=== PATIENT | female | born 1970 | race American Indian/Alaskan Native ===

== ENCOUNTER 2017-05-19 06:11 | Emergency (ER) | payer MEDICARE ==
[2017-05-19 06:16] VITALS: BP 118/52
--- NOTE | 2017-05-19 07:59 | Emergency Department Report ---
HPI - General Chief Complaint: Dental/Oral Time Seen by Provider: 05/19/17 07:27 - HPI HPI: The patient is a 46 year-old female who presents to ED complaining of 7/10 pain in the right side of his mouth x 5 days . Patient states that the pain started 5 days ago and has increased in severity over the last 2-3 days. The pain is exacerbated by eating and opening of the mouth. Patient states that it radiates towards ear. Patient describes a as a throbbing , pressure-like sensation. Patient states otherwise well and has no other complaints. Patient has had no fevers and no chills. No chest pain, no shortness of breath. No abdominal pain. No shortness of breath or recent trauma to the face. ED Past Medical Hx - Past Medical History Previous Medical History?: Yes Hx Diabetes: Yes (Being monitored) Hx Headaches / Migraines: Yes Hx Psychiatric Treatment: Yes (anxiety and depression) Hx Asthma: Yes Additional medical history: anxiety, "chronic stomach pain," cholestrol; - Surgical History Hx Cholecystectomy: Yes Hx Breast Surgery: Yes (right mass removed) Additional Surgical History: sm bowel resection with reanastomosis (2010),. myomectomy. bilat oopherectomy. Bilateral carpal tunnel, Two Right Hip Revisions, Total right hip replacement, Torn right Rotator cuff, Right knee surgery - Social History Smoking Status: Current Every Day Smoker - Medications Home Medications: Home Medications Medication Instructions Recorded Confirmed Last Taken Type FLUoxetine [Prozac] 60 mg PO QDAY 06/14/13 05/19/17 12/03/13 History Topiramate [Topamax] 200 mg PO BID 06/14/13 05/19/17 12/03/13 History Acetaminophen/Codeine [Tylenol 1 tab PO Q6H PRN #8 tab 05/19/17 Unknown Rx /Codeine # 3 tab] Atorvastatin [Lipitor Tab] 80 mg PO QHS 05/19/17 05/19/17 Unknown History Clindamycin [Clindamycin CAP] 300 mg PO BID #14 capsule 05/19/17 Unknown Rx Ergocalciferol [Vitamin D2] 1 cap PO QWEEK 05/19/17 05/19/17 Unknown History Fluticasone/Salmeterol(Nf) [Advair 12 gm IH BID 05/19/17 05/19/17 Unknown History Hfa 115-21 Mcg (Nf)] Ibuprofen [Motrin] 800 mg PO Q8HR PRN #20 tablet 05/19/17 Unknown Rx metFORMIN [Glucophage] 500 mg PO BID 05/19/17 05/19/17 Unknown History ED Review of Systems ROS: Stated complaint: TOOTHACHE Other details as noted in HPI Constitutional: denies: chills, fever Eyes: denies: eye pain, eye discharge, vision change ENT: denies: ear pain, throat pain Respiratory: denies: cough, shortness of breath, wheezing Cardiovascular: denies: chest pain, palpitations Endocrine: no symptoms reported Gastrointestinal: denies: abdominal pain, nausea, diarrhea Genitourinary: denies: urgency, dysuria, discharge Musculoskeletal: denies: back pain, joint swelling, arthralgia Skin: denies: rash, lesions Neurological: denies: headache, weakness, paresthesias Psychiatric: denies: anxiety, depression Hematological/Lymphatic: denies: easy bleeding, easy bruising Physical Exam - Physical Exam Vital Signs: Vital Signs 05/19/17 05/19/17 06:13 07:02 Temperature 98.3 F 98.3 F Pulse Rate 73 76 Respiratory 18 18 Rate Blood Pressure 118/52 118/52 O2 Sat by Pulse 98 98 Oximetry Physical Exam: GENERAL: Alert and oriented x3, no apparent distress, Normal Gait, atraumatic. HEAD: Head is normocephalic and a-traumatic. EYES: Extra ocular muscles are intact. Pupils are equal, round, and reactive to light and accommodation. EARS: symetrical, atraumatic, non tender, ear canal clear and moderate cerumen, tympanic membrance non inflamed. gross auditory nml bilaterally. MOUTH:Mouth is well hydrated and without lesions. Tonsils nonerythematous or swollen, Uvula midline, Tongue not elevated. Mucous membranes are moist. Posterior pharynx clear, no exudate or lesions. Patent airways. NECK: Supple. Non edematous, No carotid bruits. No lymphadenopathy or thyromegaly. No C-spine tenderness LUNGS: Symetrical with respiration, No wheezing, no rales or crackles, CTAB. HEART: S1, S2 present, regular rate and rhythm without murmur, no rubs, no gallops. Non tender to palpation SKIN: Warm and dry, No lesions, No ulceration or induration present. ED Course Vital Signs 05/19/17 05/19/17 06:13 07:02 Temperature 98.3 F 98.3 F Pulse Rate 73 76 Respiratory 18 18 Rate Blood Pressure 118/52 118/52 O2 Sat by Pulse 98 98 Oximetry ED Medical Decision Making - Medical Decision Making 46-year-old female who presents with left-sided Facial pain secondary to odontogenic caries ED course: Odontogenic infection versus ear infection. Based upon history and physical examination, pain is a result of an infection due to caries and missing of tooth number 3,4 and that the pain Pt feels on the right side of her face and towards the ear is referred pain from this infectious process. Pt has no evidence of acute impending airway compromise. At this point, patient will be discharged home on some antibiotics and pain trial, she will do well with an outpatient course of antibiotics. Follow up with the Dental Clinic as referred Vital signs are normal patient is in no acute distress. Pt had an effect uneventful ED stay Critical care attestation.: If time is entered above; I have spent that time in minutes in the direct care of this critically ill patient, excluding procedure time. ED Disposition Clinical Impression: Pain in tooth, Dental caries Disposition: DC- TO HOME OR SELFCARE Is pt being admited?: No Does the pt Need Aspirin: No Condition: Stable Instructions: Dental Caries (ED), Toothache (ED) Additional Instructions: Follow-up with dentist as referred /discussed Prescriptions: Acetaminophen/Codeine [Tylenol /Codeine # 3 tab] 1 tab PO Q6H PRN #8 tab PRN Reason: Pain Clindamycin [Clindamycin CAP] 300 mg PO BID #14 capsule Ibuprofen [Motrin] 800 mg PO Q8HR PRN #20 tablet PRN Reason: Pain Referrals: PRIMARY CARE, [Primary Care Provider] - 3-5 Days [facility] [Outside] - 3-5 Days [facility] [Outside] - 3-5 Days [facility] [Outside] - 3-5 Days [facility] [Outside] - 3-5 Days Forms: Accompanied Note, Work/School Release Form(ED) Time of Disposition: 07:59
[2017-05-19] MEDS: CLEOCIN PO ONE (08:15)
== END 2017-05-19 08:26 | disposition home or self-care (01) ==
LOC: ED 06:11
DX: K02.9 Dental caries, unspecified (principal); E11.9 Type 2 diabetes mellitus without complications; G43.909 Migraine, unspecified, not intractable, without status migrainosus; J45.909 Unspecified asthma, uncomplicated; F17.200 Nicotine dependence, unspecified, uncomplicated
CPT/HCPCS: 99282

== ENCOUNTER 2017-12-22 06:30 | Emergency (ER) | payer MEDICARE ==
[2017-12-22 06:44] VITALS: BP 142/78
[2017-12-22] MEDS ORDERED: BOOSTRIX IM ONE (07:34)
[2017-12-22] MEDS ORDERED: MOTRIN PO ONE (07:34)
--- NOTE | 2017-12-22 07:41 | Emergency Department Report ---
- General Chief complaint: Skin/Abscess/Foreign Body Stated complaint: POSS INFECTION Time Seen by Provider: 12/22/17 07:13 Source: patient Mode of arrival: Ambulatory Limitations: No Limitations - History of Present Illness Initial comments: This is a 47-year-old female nontoxic, well nourished in appearance, no acute signs of distress presents to the ED with c/o of right breast redness and pain x5 days. Patient stated denies any trauma. Patient stated that she is not up- to-date with tetanus. Patient denies any fever, chills, nausea, vomiting, chest pain, shortness of breath, headache or stiff neck. Patient denies any pus or drainage. Patient is requesting for a metformin refill that she takes 500 mg twice a day and she is out and does not have a primary care doctor scheduled for a visit. Medical history includes diabetes, asthma, headaches, psychiatric. MD complaint: other (cellulitits) -: days(s) (5) Tetanus Up to Date: no Severity: mild Severity scale (0 -10): 8 Quality: aching Consistency: constant Improves with: none Worsens with: none Context: none Associated symptoms: denies other symptoms Treatments Prior to Arrival: none - Related Data Home Medications Medication Instructions Recorded Confirmed Last Taken FLUoxetine [Prozac] 60 mg PO QDAY 06/14/13 05/19/17 12/03/13 Topiramate [Topamax] 200 mg PO BID 06/14/13 05/19/17 12/03/13 Atorvastatin [Lipitor Tab] 80 mg PO QHS 05/19/17 05/19/17 Unknown Ergocalciferol [Vitamin D2] 1 cap PO QWEEK 05/19/17 05/19/17 Unknown Fluticasone/Salmeterol(Nf) [Advair 12 gm IH BID 05/19/17 05/19/17 Unknown Hfa 115-21 Mcg (Nf)] metFORMIN [Glucophage] 500 mg PO BID 05/19/17 05/19/17 Unknown Previous Rx's Medication Instructions Recorded Last Taken Type Acetaminophen/Codeine [Tylenol 1 tab PO Q6H PRN #8 tab 05/19/17 Unknown Rx /Codeine # 3 tab] Clindamycin [Clindamycin CAP] 300 mg PO BID #14 capsule 05/19/17 Unknown Rx Ibuprofen [Motrin] 800 mg PO Q8HR PRN #20 tablet 05/19/17 Unknown Rx Clindamycin [Clindamycin CAP] 300 mg PO Q8H #21 cap 12/22/17 Unknown Rx Ibuprofen [Motrin] 600 mg PO Q8H PRN #30 tablet 12/22/17 Unknown Rx metFORMIN [Glucophage] 500 mg PO BID #60 tablet 12/22/17 Unknown Rx Allergies Allergy/AdvReac Type Severity Reaction Status Date / Time acetaminophen Allergy Unknown Verified 12/22/17 06:45 [From Tylenol-Codeine #3] cephalexin monohydrate Allergy Unknown Verified 06/14/13 06:16 [From Keflex] codeine Allergy Unknown Verified 12/22/17 06:45 [From Tylenol-Codeine #3] meloxicam Allergy Swelling Verified 12/22/17 06:45 methadone [Methadone] Allergy Unknown Verified 06/14/13 06:15 methocarbamol [From Robaxin] Allergy Itching Verified 06/14/13 06:15 methylprednisolone Allergy Itching Verified 06/14/13 06:16 [From Medrol] naproxen Allergy Nausea Verified 06/14/13 06:15 oxycodone HCl [From Percocet] Allergy Nausea Verified 06/14/13 06:15 Penicillins Allergy Hives Verified 02/14/16 01:05 propoxyphene napsylate Allergy Nausea Verified 06/14/13 06:16 [From Darvocet-N 100] Sulfa (Sulfonamide Allergy Unknown Verified 06/14/13 06:15 Antibiotics) tramadol HCl [From Ultram] Allergy Itching Verified 06/14/13 06:15 Abscess Boil HPI - HPI Chief Complaint: Skin/Abscess/Foreign Body Stated Complaint: POSS INFECTION Time Seen by Provider: 12/22/17 07:13 Home Medications: Home Medications Medication Instructions Recorded Confirmed Last Taken FLUoxetine [Prozac] 60 mg PO QDAY 06/14/13 05/19/17 12/03/13 Topiramate [Topamax] 200 mg PO BID 06/14/13 05/19/17 12/03/13 Atorvastatin [Lipitor Tab] 80 mg PO QHS 05/19/17 05/19/17 Unknown Ergocalciferol [Vitamin D2] 1 cap PO QWEEK 05/19/17 05/19/17 Unknown Fluticasone/Salmeterol(Nf) [Advair 12 gm IH BID 05/19/17 05/19/17 Unknown Hfa 115-21 Mcg (Nf)] metFORMIN [Glucophage] 500 mg PO BID 05/19/17 05/19/17 Unknown Previous Rx's Medication Instructions Recorded Last Taken Type Acetaminophen/Codeine [Tylenol 1 tab PO Q6H PRN #8 tab 05/19/17 Unknown Rx /Codeine # 3 tab] Clindamycin [Clindamycin CAP] 300 mg PO BID #14 capsule 05/19/17 Unknown Rx Ibuprofen [Motrin] 800 mg PO Q8HR PRN #20 tablet 05/19/17 Unknown Rx Clindamycin [Clindamycin CAP] 300 mg PO Q8H #21 cap 12/22/17 Unknown Rx Ibuprofen [Motrin] 600 mg PO Q8H PRN #30 tablet 12/22/17 Unknown Rx metFORMIN [Glucophage] 500 mg PO BID #60 tablet 12/22/17 Unknown Rx Allergies/Adverse Reactions: Allergies Allergy/AdvReac Type Severity Reaction Status Date / Time acetaminophen Allergy Unknown Verified 12/22/17 06:45 [From Tylenol-Codeine #3] cephalexin monohydrate Allergy Unknown Verified 06/14/13 06:16 [From Keflex] codeine Allergy Unknown Verified 12/22/17 06:45 [From Tylenol-Codeine #3] meloxicam Allergy Swelling Verified 12/22/17 06:45 methadone [Methadone] Allergy Unknown Verified 06/14/13 06:15 methocarbamol [From Robaxin] Allergy Itching Verified 06/14/13 06:15 methylprednisolone Allergy Itching Verified 06/14/13 06:16 [From Medrol] naproxen Allergy Nausea Verified 06/14/13 06:15 oxycodone HCl [From Percocet] Allergy Nausea Verified 06/14/13 06:15 Penicillins Allergy Hives Verified 02/14/16 01:05 propoxyphene napsylate Allergy Nausea Verified 06/14/13 06:16 [From Darvocet-N 100] Sulfa (Sulfonamide Allergy Unknown Verified 06/14/13 06:15 Antibiotics) tramadol HCl [From Ultram] Allergy Itching Verified 06/14/13 06:15 ED Review of Systems ROS: Stated complaint: POSS INFECTION Other details as noted in HPI Constitutional: denies: chills, fever Eyes: denies: eye pain, eye discharge, vision change ENT: denies: ear pain, throat pain Respiratory: denies: cough, shortness of breath, wheezing Cardiovascular: denies: chest pain, palpitations Endocrine: no symptoms reported Gastrointestinal: denies: abdominal pain, nausea, diarrhea Genitourinary: denies: urgency, dysuria, discharge Musculoskeletal: denies: back pain, joint swelling, arthralgia Skin: denies: rash, lesions Neurological: denies: headache, weakness, paresthesias Psychiatric: denies: anxiety, depression Hematological/Lymphatic: denies: easy bleeding, easy bruising ED Past Medical Hx - Past Medical History Previous Medical History?: Yes Hx Diabetes: Yes Hx Headaches / Migraines: Yes Hx Psychiatric Treatment: Yes (anxiety and depression) Hx Asthma: Yes Additional medical history: anxiety, "chronic stomach pain," cholestrol; - Surgical History Past Surgical History?: Yes Hx Cholecystectomy: Yes Hx Breast Surgery: Yes (right mass removed) Additional Surgical History: sm bowel resection with reanastomosis (2010),. myomectomy. bilat oopherectomy. Bilateral carpal tunnel, Two Right Hip Revisions, Total right hip replacement, Torn right Rotator cuff, Right knee surgery. partial hyster - Social History Smoking Status: Current Every Day Smoker Substance Use Type: None - Medications Home Medications: Home Medications Medication Instructions Recorded Confirmed Last Taken Type FLUoxetine [Prozac] 60 mg PO QDAY 06/14/13 05/19/17 12/03/13 History Topiramate [Topamax] 200 mg PO BID 06/14/13 05/19/17 12/03/13 History Acetaminophen/Codeine [Tylenol 1 tab PO Q6H PRN #8 tab 05/19/17 Unknown Rx /Codeine # 3 tab] Atorvastatin [Lipitor Tab] 80 mg PO QHS 05/19/17 05/19/17 Unknown History Clindamycin [Clindamycin CAP] 300 mg PO BID #14 capsule 05/19/17 Unknown Rx Ergocalciferol [Vitamin D2] 1 cap PO QWEEK 05/19/17 05/19/17 Unknown History Fluticasone/Salmeterol(Nf) [Advair 12 gm IH BID 05/19/17 05/19/17 Unknown History Hfa 115-21 Mcg (Nf)] Ibuprofen [Motrin] 800 mg PO Q8HR PRN #20 tablet 05/19/17 Unknown Rx metFORMIN [Glucophage] 500 mg PO BID 05/19/17 05/19/17 Unknown History Clindamycin [Clindamycin CAP] 300 mg PO Q8H #21 cap 12/22/17 Unknown Rx Ibuprofen [Motrin] 600 mg PO Q8H PRN #30 tablet 12/22/17 Unknown Rx metFORMIN [Glucophage] 500 mg PO BID #60 tablet 12/22/17 Unknown Rx ED Physical Exam - General Limitations: No Limitations General appearance: alert, in no apparent distress - Head Head exam: Present: atraumatic, normocephalic - Eye Eye exam: Present: normal appearance - ENT ENT exam: Present: mucous membranes moist - Neck Neck exam: Present: normal inspection - Respiratory Respiratory exam: Present: normal lung sounds bilaterally. Absent: respiratory distress - Cardiovascular Cardiovascular Exam: Present: regular rate, normal rhythm. Absent: systolic murmur, diastolic murmur, rubs, gallop - GI/Abdominal GI/Abdominal exam: Present: soft, normal bowel sounds - Extremities Exam Extremities exam: Present: normal inspection - Back Exam Back exam: Present: normal inspection, full ROM - Neurological Exam Neurological exam: Present: alert, oriented X3 - Psychiatric Psychiatric exam: Present: normal affect, normal mood - Skin Skin exam: Present: warm, dry, intact, normal color. Absent: rash - Other Other exam information: 2 cm erythema on right breast and 1 cm circular erythema on the breast on the right. No induration or fluctuance. Tender to touch. No pus or drainage. ED Course Vital Signs 12/22/17 06:39 Temperature 98.4 F Pulse Rate 71 Respiratory 18 Rate Blood Pressure 142/78 O2 Sat by Pulse 98 Oximetry - Reevaluation(s) Reevaluation #1: 12/22/17 07:41 Patient is speaking in full sentences with no signs of distress noted. ED Medical Decision Making - Medical Decision Making This is a 47-year-old female that presents with cellulitis. Patient is stable and was examined by me. The area has been outlined with a permanent marker and patient was instructed to return to emergency room as redness increased swelling increase as this may be indication for an abscess formation. Patient is discharged with clindamycin and Motrin. Patient was instructed to refer to Follow-up with a primary care doctor in 3-5 days or if symptoms worsen and continue return to emergency room as soon as possible. At time of discharge, the patient does not seem toxic or ill in appearance. No acute signs of distress noted. Patient agrees to discharge treatment plan of care. No further questions noted by the patient. Patient also received Tetanus in the ED. Critical care attestation.: If time is entered above; I have spent that time in minutes in the direct care of this critically ill patient, excluding procedure time. ED Disposition Clinical Impression: Cellulitis Qualifiers: Site of cellulitis: unspecified site Qualified Code(s): L03.90 - Cellulitis, unspecified Disposition: - TO HOME OR SELFCARE Is pt being admited?: No Does the pt Need Aspirin: No Condition: Stable Instructions: Cellulitis (ED) Additional Instructions: Follow-up with a primary care doctor in 3-5 days or if symptoms worsen and continue return to emergency room as soon as possible. If symptoms of redness or swelling increases, please return to the ED as an incision and drainage may need to be performed. Prescriptions: Clindamycin [Clindamycin CAP] 300 mg PO Q8H #21 cap Ibuprofen [Motrin] 600 mg PO Q8H PRN #30 tablet PRN Reason: Pain metFORMIN [Glucophage] 500 mg PO BID #60 tablet Referrals: PRIMARY MD ELENA [Primary Care Provider] - 3-5 Days JULIENNE HARMON MD [Staff Physician] - 3-5 Days [facility] [Outside] - 3-5 Days [facility] [Outside] - 3-5 Days Forms: Work/School Release Form(ED)
== END 2017-12-22 08:00 | disposition home or self-care (01) ==
LOC: ED 06:30
DX: N61.0 Mastitis without abscess (principal); E11.9 Type 2 diabetes mellitus without complications; G43.909 Migraine, unspecified, not intractable, without status migrainosus; J45.909 Unspecified asthma, uncomplicated; F41.8 Other specified anxiety disorders; R10.9 Unspecified abdominal pain; G89.29 Other chronic pain; E78.00 Pure hypercholesterolemia, unspecified; Z98.890 Other specified postprocedural states; F17.200 Nicotine dependence, unspecified, uncomplicated; Z88.8 Allergy status to other drugs, medicaments and biological substances; Z79.899 Other long term (current) drug therapy
CPT/HCPCS: 90471; 90715; 99282

== ENCOUNTER 2019-08-30 03:09 | Emergency (ER) | payer MEDICARE ==
[2019-08-30 06:58] VITALS: BP 125/66
--- NOTE | 2019-08-30 08:02 | Emergency Department Report ---
Chief Complaint: Back Pain/Injury Stated Complaint: LOWER BACK PAIN Time Seen by Provider: 08/30/19 07:35 - HPI History of Present Illness: This is a 48-year-old female with a past medical history of arthritis and bulging disc of the lumbar complaining of lower back pain x4 days. Patient states that she recently had a hip replacement some 8 to 9 months ago. Patient states that pain is localized to her lumbar region. Patient denies any injury, trauma or falls. Patient states that she does take Flexeril and takes Fords for pain. Patient states that she was just worried because her grandmother recently passed of heart attack and prior to that had back pains for many years. Patient denies fever/chills/nausea vomiting/dysuria/inability to walk or use bowel function - ROS Review of Systems: As noted in HPI - Exam Vital Signs: Vital Signs 08/30/19 08/30/19 03:26 06:57 Temperature 98.5 F 97.8 F Pulse Rate 76 63 Respiratory 18 16 Rate Blood Pressure 145/73 Blood Pressure 125/66 [Right] O2 Sat by Pulse 99 100 Oximetry Physical Exam: GENERAL: Alert and oriented x3, no apparent distress, Normal Gait, atraumatic. HEAD: Head is normocephalic and a-traumatic. BACK: Full range of motion, no spinal tenderness, nontender to palpation. EXTREMITIES/MUSCULOSKELETAL: No cyanosis, clubbing, rash, lesions or edema. Full ROM bilaterally. UE/LE Pulses 2+ bilaterally. LE and UE 5+ strength bilaterally, NEUROLOGIC: The patient is cooperative with no focal neurologic deficits. Normal speech. Normal sensation SKIN: Warm and dry, No lesions, No ulceration or induration present. MSE screening note: Focused history and physical exam performed. Due to findings the following was ordered: ED Medical Decision Making - Medical Decision Making This is a 48-year-old female who presents with chronic back pain. Discussed with patient that she needs to follow-up with neurologist. Patient did note that she did have an MRI about 9 months ago. Patient states she has an orthopedic doctor but has not seen a neurologist. I discussed with patient need to see a neurologist for continued care management of her chronic back pain. Patient had no neurological deficit. Patient is in no acute distress Patient understand instructions and will follow-up. ED Disposition for MSE Clinical Impression: Chronic back pain, Bulging lumbar disc Disposition: MED SCREENING EXAM-LEFT Is pt being admited?: No Does the pt Need Aspirin: No Condition: Stable Instructions: Lumbar Radiculopathy (ED) Additional Instructions: Make sure to follow up with the primary care physician as discussed. Continue to take your medication as prescribed by your doctor If you have any worsening symptoms or develop new symptoms please return to ED immediately. Referrals: PRIMARY CARE, [Referring] - 3-5 Days [facility] [Provider Group] - 3-5 Days [facility] [Provider Group] - 3-5 Days [facility] [Provider Group] - 3-5 Days Forms: Work/School Release Form(ED) Time of Disposition: 08:07
== END 2019-08-30 08:25 | disposition left against medical advice (07) ==
LOC: ED 03:09
DX: G89.29 Other chronic pain (principal); M54.5 Low back pain; Z88.6 Allergy status to analgesic agent; Z88.1 Allergy status to other antibiotic agents; Z88.5 Allergy status to narcotic agent; Z88.8 Allergy status to other drugs, medicaments and biological substances
CPT/HCPCS: 99281

== ENCOUNTER 2021-12-31 11:53 | Emergency (ER) | payer MEDICARE ==
[2021-12-31] MEDS ORDERED: KETOROLAC 10 MG TAB PO ONE (13:01)
[2021-12-31] MEDS ORDERED: oxyCODONE /ACETAMINOPHEN 5-325MG TAB PO ONE (13:03)
[2021-12-31] MEDS ORDERED: metroNIDAZOLE 500 MG TAB PO ONE (13:05)
[2021-12-31] MEDS ORDERED: levoFLOXacin 750 MG TAB PO ONE (13:05)
--- NOTE | 2021-12-31 13:11 | Emergency Department Report ---
ED ENT HPI - General Chief complaint: Skin/Abscess/Foreign Body Stated complaint: ABCESS Time Seen by Provider: 12/31/21 12:59 Source: patient Mode of arrival: Ambulatory Limitations: No Limitations - History of Present Illness Initial comments: 51 yo black female with pmh of dm presents to ed for evaluation of worsening dental pain. She states that she woke up this am with swelling to right side of face. She denies fever. MD complaint: tooth pain -: Gradual, days(s) (3-4) Location: tooth # (2) Severity: severe Severity scale (0 -10): 10 Quality: aching Consistency: constant Worsens with: movement, other (palpation) Context- Dental: poor dental care Associated Symptoms: toothache. denies: fever, cough, gum swelling, pain with swallowing, sore throat, tinnitus, hearing loss, discharge from ear, rhinorrhea - Related Data Home Medications Medication Instructions Recorded Confirmed Last Taken FLUoxetine [Prozac] 60 mg PO QDAY 06/14/13 05/19/17 12/03/13 Topiramate [Topamax] 200 mg PO BID 06/14/13 05/19/17 12/03/13 Atorvastatin [Lipitor Tab] 80 mg PO QHS 05/19/17 05/19/17 Unknown Ergocalciferol [Vitamin D2] 1 cap PO QWEEK 05/19/17 05/19/17 Unknown Fluticasone/Salmeterol(Nf) [Advair 12 gm IH BID 05/19/17 05/19/17 Unknown Hfa 115-21 Mcg (Nf)] metFORMIN [Glucophage] 500 mg PO BID 05/19/17 05/19/17 Unknown Previous Rx's Medication Instructions Recorded Last Taken Type Acetaminophen/Codeine [Tylenol 1 tab PO Q6H PRN #8 tab 05/19/17 Unknown Rx /Codeine # 3 tab] Clindamycin [Clindamycin CAP] 300 mg PO BID #14 capsule 05/19/17 Unknown Rx Ibuprofen [Motrin] 800 mg PO Q8HR PRN #20 tablet 05/19/17 Unknown Rx Clindamycin [Clindamycin CAP] 300 mg PO Q8H #21 cap 12/22/17 Unknown Rx Ibuprofen [Motrin] 600 mg PO Q8H PRN #30 tablet 12/22/17 Unknown Rx metFORMIN [Glucophage] 500 mg PO BID #60 tablet 12/22/17 Unknown Rx Acetaminophen 500 mg PO Q8H PRN #20 tablet 05/10/18 Unknown Rx Chlorhexidine Mouthwash [Peridex] 15 ml MM BID #1 bottle 05/10/18 Unknown Rx Clindamycin [Clindamycin CAP] 300 mg PO Q8H #21 cap 05/10/18 Unknown Rx HYDROcodone/APAP 5-325 [[place] 1 each PO Q4HR PRN #12 tablet 06/28/18 Unknown Rx 5/325] Ketorolac [Toradol] 10 mg PO Q6H PRN #12 tab 12/31/21 Unknown Rx levoFLOXacin [Levaquin] 750 mg PO QDAY 5 Days #5 tablet 12/31/21 Unknown Rx metroNIDAZOLE [Flagyl] 500 mg PO Q12HR 7 Days #14 tab 12/31/21 Unknown Rx Allergies Allergy/AdvReac Type Severity Reaction Status Date / Time acetaminophen Allergy Unknown Verified 12/22/17 06:45 [From Tylenol-Codeine #3] aspirin Allergy Unknown Verified 06/28/18 20:42 cephalexin monohydrate Allergy Unknown Verified 06/14/13 06:16 [From Keflex] codeine Allergy Unknown Verified 12/22/17 06:45 [From Tylenol-Codeine #3] meloxicam Allergy Swelling Verified 12/22/17 06:45 methadone [Methadone] Allergy Unknown Verified 06/14/13 06:15 methocarbamol [From Robaxin] Allergy Itching Verified 06/14/13 06:15 methylprednisolone Allergy Itching Verified 06/14/13 06:16 [From Medrol] naproxen Allergy Nausea Verified 06/14/13 06:15 oxycodone HCl [From Percocet] Allergy Nausea Verified 06/14/13 06:15 Penicillins Allergy Hives Verified 02/14/16 01:05 propoxyphene napsylate Allergy Nausea Verified 06/14/13 06:16 [From Darvocet-N 100] Sulfa (Sulfonamide Allergy Unknown Verified 06/14/13 06:15 Antibiotics) tramadol HCl [From Ultram] Allergy Itching Verified 06/14/13 06:15 ED Dental HPI - General Chief complaint: Skin/Abscess/Foreign Body Stated complaint: ABCESS Time Seen by Provider: 12/31/21 12:59 Source: patient Mode of arrival: Ambulatory Limitations: No Limitations - Related Data Home Medications Medication Instructions Recorded Confirmed Last Taken FLUoxetine [Prozac] 60 mg PO QDAY 06/14/13 05/19/17 12/03/13 Topiramate [Topamax] 200 mg PO BID 06/14/13 05/19/17 12/03/13 Atorvastatin [Lipitor Tab] 80 mg PO QHS 05/19/17 05/19/17 Unknown Ergocalciferol [Vitamin D2] 1 cap PO QWEEK 05/19/17 05/19/17 Unknown Fluticasone/Salmeterol(Nf) [Advair 12 gm IH BID 05/19/17 05/19/17 Unknown Hfa 115-21 Mcg (Nf)] metFORMIN [Glucophage] 500 mg PO BID 05/19/17 05/19/17 Unknown Previous Rx's Medication Instructions Recorded Last Taken Type Acetaminophen/Codeine [Tylenol 1 tab PO Q6H PRN #8 tab 05/19/17 Unknown Rx /Codeine # 3 tab] Clindamycin [Clindamycin CAP] 300 mg PO BID #14 capsule 05/19/17 Unknown Rx Ibuprofen [Motrin] 800 mg PO Q8HR PRN #20 tablet 05/19/17 Unknown Rx Clindamycin [Clindamycin CAP] 300 mg PO Q8H #21 cap 12/22/17 Unknown Rx Ibuprofen [Motrin] 600 mg PO Q8H PRN #30 tablet 12/22/17 Unknown Rx metFORMIN [Glucophage] 500 mg PO BID #60 tablet 12/22/17 Unknown Rx Acetaminophen 500 mg PO Q8H PRN #20 tablet 05/10/18 Unknown Rx Chlorhexidine Mouthwash [Peridex] 15 ml MM BID #1 bottle 05/10/18 Unknown Rx Clindamycin [Clindamycin CAP] 300 mg PO Q8H #21 cap 05/10/18 Unknown Rx HYDROcodone/APAP 5-325 [[place] 1 each PO Q4HR PRN #12 tablet 06/28/18 Unknown Rx 5/325] Ketorolac [Toradol] 10 mg PO Q6H PRN #12 tab 12/31/21 Unknown Rx levoFLOXacin [Levaquin] 750 mg PO QDAY 5 Days #5 tablet 12/31/21 Unknown Rx metroNIDAZOLE [Flagyl] 500 mg PO Q12HR 7 Days #14 tab 12/31/21 Unknown Rx Allergies Allergy/AdvReac Type Severity Reaction Status Date / Time acetaminophen Allergy Unknown Verified 12/22/17 06:45 [From Tylenol-Codeine #3] aspirin Allergy Unknown Verified 06/28/18 20:42 cephalexin monohydrate Allergy Unknown Verified 06/14/13 06:16 [From Keflex] codeine Allergy Unknown Verified 12/22/17 06:45 [From Tylenol-Codeine #3] meloxicam Allergy Swelling Verified 12/22/17 06:45 methadone [Methadone] Allergy Unknown Verified 06/14/13 06:15 methocarbamol [From Robaxin] Allergy Itching Verified 06/14/13 06:15 methylprednisolone Allergy Itching Verified 06/14/13 06:16 [From Medrol] naproxen Allergy Nausea Verified 06/14/13 06:15 oxycodone HCl [From Percocet] Allergy Nausea Verified 06/14/13 06:15 Penicillins Allergy Hives Verified 02/14/16 01:05 propoxyphene napsylate Allergy Nausea Verified 06/14/13 06:16 [From Darvocet-N 100] Sulfa (Sulfonamide Allergy Unknown Verified 06/14/13 06:15 Antibiotics) tramadol HCl [From Ultram] Allergy Itching Verified 06/14/13 06:15 ED Review of Systems ROS: Stated complaint: ABCESS Other details as noted in HPI Comment: All other systems reviewed and negative Constitutional: denies: chills, fever Eyes: denies: eye pain ENT: dental pain. denies: ear pain Respiratory: denies: shortness of breath Cardiovascular: denies: chest pain Gastrointestinal: denies: abdominal pain, nausea, vomiting Musculoskeletal: denies: back pain Neurological: headache. denies: weakness ED Past Medical Hx - Past Medical History Hx Diabetes: Yes Hx Headaches / Migraines: Yes Hx Psychiatric Treatment: Yes (anxiety and depression) Hx Asthma: Yes Additional medical history: anxiety, "chronic stomach pain," cholestrol;. CHRONIC BACK PAIN, Slipped disc - Surgical History Hx Cholecystectomy: Yes Hx Breast Surgery: Yes (right mass removed) Additional Surgical History: sm bowel resection with reanastomosis (2010),. myomectomy. bilat oopherectomy total hysterectomy. Bilateral carpal tunnel, Two Right Hip Revisions, Total right hip replacement, Torn right Rotator cuff, Right knee surgery. partial hyster - Social History Smoking Status: Never Smoker - Medications Home Medications: Home Medications Medication Instructions Recorded Confirmed Last Taken Type FLUoxetine [Prozac] 60 mg PO QDAY 06/14/13 05/19/17 12/03/13 History Topiramate [Topamax] 200 mg PO BID 06/14/13 05/19/17 12/03/13 History Acetaminophen/Codeine [Tylenol 1 tab PO Q6H PRN #8 tab 05/19/17 Unknown Rx /Codeine # 3 tab] Atorvastatin [Lipitor Tab] 80 mg PO QHS 05/19/17 05/19/17 Unknown History Clindamycin [Clindamycin CAP] 300 mg PO BID #14 capsule 05/19/17 Unknown Rx Ergocalciferol [Vitamin D2] 1 cap PO QWEEK 05/19/17 05/19/17 Unknown History Fluticasone/Salmeterol(Nf) [Advair 12 gm IH BID 05/19/17 05/19/17 Unknown Hist ory Hfa 115-21 Mcg (Nf)] Ibuprofen [Motrin] 800 mg PO Q8HR PRN #20 tablet 05/19/17 Unknown Rx metFORMIN [Glucophage] 500 mg PO BID 05/19/17 05/19/17 Unknown History Clindamycin [Clindamycin CAP] 300 mg PO Q8H #21 cap 12/22/17 Unknown Rx Ibuprofen [Motrin] 600 mg PO Q8H PRN #30 tablet 12/22/17 Unknown Rx metFORMIN [Glucophage] 500 mg PO BID #60 tablet 12/22/17 Unknown Rx Acetaminophen 500 mg PO Q8H PRN #20 tablet 05/10/18 Unknown Rx Chlorhexidine Mouthwash [Peridex] 15 ml MM BID #1 bottle 05/10/18 Unknown Rx Clindamycin [Clindamycin CAP] 300 mg PO Q8H #21 cap 05/10/18 Unknown Rx HYDROcodone/APAP 5-325 [[place] 1 each PO Q4HR PRN #12 tablet 06/28/18 Unknown Rx 5/325] Ketorolac [Toradol] 10 mg PO Q6H PRN #12 tab 12/31/21 Unknown Rx levoFLOXacin [Levaquin] 750 mg PO QDAY 5 Days #5 tablet 12/31/21 Unknown Rx metroNIDAZOLE [Flagyl] 500 mg PO Q12HR 7 Days #14 tab 12/31/21 Unknown Rx ED Physical Exam - General Limitations: No Limitations General appearance: alert, in no apparent distress - Head Head exam: Present: atraumatic, normocephalic - Eye Eye exam: Present: normal appearance. Absent: scleral icterus, conjunctival injection, periorbital swelling, periorbital tenderness - Expanded ENT Exam Expanded Teeth exam: Present: dental caries, dental tenderness # (2), other (tenderness, edema, erythema, and abscess noted to gums around tooth # 2. ) - Neck Neck exam: Present: normal inspection. Absent: lymphadenopathy - Respiratory Respiratory exam: Absent: respiratory distress - Cardiovascular Cardiovascular Exam: Present: regular rate - GI/Abdominal GI/Abdominal exam: Absent: distended - Extremities Exam Extremities exam: Present: normal inspection - Back Exam Back exam: Present: normal inspection. Absent: CVA tenderness (R), CVA tenderness (L) - Neurological Exam Neurological exam: Present: alert, oriented X3 - Psychiatric Psychiatric exam: Present: normal affect, normal mood - Skin Skin exam: Present: warm, dry, intact, normal color ED Course Vital Signs 12/31/21 12:56 Temperature 99.5 F Pulse Rate 79 Respiratory 17 Rate Blood Pressure 125/72 O2 Sat by Pulse 96 Oximetry ED Medical Decision Making - Medical Decision Making 51 yo black female with pmh of dm presents to ed for evaluation of worsening dental pain. She states that she woke up this am with swelling to right side of face. She denies fever. Exam consistent with dental abscess. She will be treated with antibiotics, anti inflammatories and pain meds in ed and at home.She is advised to follow up with dentist shannan for further evaluation and management. She verbalizes understanding of and agreement with plan of care. Critical care attestation.: If time is entered above; I have spent that time in minutes in the direct care of this critically ill patient, excluding procedure time. ED Disposition Clinical Impression: Dental abscess Disposition: 01 HOME / SELF CARE / HOMELESS Is pt being admited?: No Does the pt Need Aspirin: No Condition: Stable Instructions: Dental Abscess, [id number] Additional Instructions: Take medications as prescribed and follow up with dentist for further evaluation and management. Return to ED as needed. Prescriptions: metroNIDAZOLE [Flagyl] 500 mg PO Q12HR 7 Days #14 tab levoFLOXacin [Levaquin] 750 mg PO QDAY 5 Days #5 tablet Ketorolac [Toradol] 10 mg PO Q6H PRN #12 tab PRN Reason: Pain Referrals: [facility] [Outside] - 3-5 Days [facility] [Outside] - 3-5 Days Forms: Work/School Release Form(ED) Time of Disposition: 13:14
[2021-12-31] MEDS ORDERED: oxyCODONE /ACETAMINOPHEN 5-325MG TAB PO SCH (16:00)
[2021-12-31 17:03] VITALS: BP 152/90
== END 2021-12-31 17:33 | disposition home or self-care (01) ==
LOC: ED 11:53
DX: K04.7 Periapical abscess without sinus (principal); E11.9 Type 2 diabetes mellitus without complications; F41.9 Anxiety disorder, unspecified; F32.9 Major depressive disorder, single episode, unspecified; G43.909 Migraine, unspecified, not intractable, without status migrainosus; Z98.890 Other specified postprocedural states; Z88.0 Allergy status to penicillin; Z88.1 Allergy status to other antibiotic agents; Z88.5 Allergy status to narcotic agent; Z88.6 Allergy status to analgesic agent; Z88.8 Allergy status to other drugs, medicaments and biological substances
CPT/HCPCS: 99282